=== PATIENT | male | born 1965 | race African-American/Black ===

== ENCOUNTER 2024-03-11 12:53 | Emergency (ER) | payer OTHER ==
[~2024-03-11] VITALS: Ht 172.7 cm; Wt 100.0 kg
[~2024-03-11 12:53] MED LIST: CLON0.1T PO; GLYB-145 PO; HYDR25TA PO; HYDR25TA84 PO; LOSA-382 PO; METF-1211 PO
[2024-03-11] MEDS ORDERED: DULA3PEN SQ (13:10)
[2024-03-11] MEDS ORDERED: METF-446 PO (13:10)
[2024-03-11] MEDS ORDERED: AMLO5TAB66 PO (13:10)
[2024-03-11] MEDS ORDERED: ASPI-1444 PO (13:10)
[2024-03-11] MEDS ORDERED: METO50 PO (13:10)
[2024-03-11] MEDS ORDERED: DAPA5TAB PO (13:10)
[2024-03-11] MEDS ORDERED: ATOR40TA71 PO (13:10)
[2024-03-11] MEDS: HYDROCODONE/ACETAMINOPHEN 5-325 MG TABLET PO ONE (15:50)
[2024-03-11 18:54] VITALS: BP 144/91; PULSE 69; RESP 18; TEMP 98
[2024-03-11] MEDS ORDERED: PRED-554 PO (18:56)
[2024-03-11] MEDS ORDERED: TRAM50TA5 PO (18:56)
[2024-03-11] MEDS ORDERED: IBUP-1492 PO (18:56)
== END 2024-03-11 19:24 | disposition home or self-care (01) ==
LOC: EMS 12:53
DX: M10.9 Gout, unspecified (principal); M79.671 Pain in right foot; M19.90 Unspecified osteoarthritis, unspecified site; I10 Essential (primary) hypertension; Z96.642 Presence of left artificial hip joint; Z96.659 Presence of unspecified artificial knee joint; Z98.890 Other specified postprocedural states
CPT/HCPCS: 82962; 99283